=== PATIENT | male | born 1975 | race Caucasian/White ===

== ENCOUNTER 2016-12-23 12:05 | Emergency (ER) | payer BC ==
[2016-12-23 12:21] VITALS: BP 131/86; PULSE 69; O2SAT 98
[2016-12-23] MEDS ORDERED: XYLOCAINE 1% HCL 20 ML MDV IJ ONE (12:23)
[2016-12-23] MEDS ORDERED: Adacel Vial IM ONE ×2 (12:23→12:27)
[2016-12-23] MEDS ORDERED: BACIGUENT PACKET TP ONE (12:23)
[2016-12-23] MEDS ORDERED: BACIGUENT PACKET ONE (12:27)
[2016-12-23] MEDS ORDERED: XYLOCAINE 1% HCL 20 ML MDV ONE (12:27)
--- NOTE | 2016-12-23 12:41 | ERPHSYRPT ---
- History of Present Illness Time Seen by Provider: 12/23/16 12:36 Source: patient Exam Limitations: no limitations Patient Subjective Stated Complaint: pt states he lacerated left lateral thumb with a utility knife, just [employer]. Triage Nursing Assessment: pt pink, warm, dry. 1.5cm laceration to left lateral thumb. no bleeding. radial pulse strong. Physician History: 41 y/o male comes to the ER after using a utility knife and accidently cut the side of his left thumb. Pt arrives with a 1.5 cm laceration with bleeding controlled. Pt admits to mild pain. Pt is not up to date with his immunizations. Timing/Duration: today Quality: painful Severity: mild Location: extremities Allergies/Adverse Reactions: No Known Drug Allergies Allergy (Unverified 12/23/16 12:21) Home Medications: Albuterol Sulfate [Ventolin Hfa] 18 gm IH BIDPRN PRN 12/23/16 [History] Cabergoline 0.25 mg PO UD 12/23/16 [History] Hx Tetanus, Diphtheria Vaccination/Date Given: Yes (unknown) Hx Influenza Vaccination/Date Given: Yes Hx Pneumococcal Vaccination/Date Given: No Immunizations Up to Date: Yes - Review of Systems Constitutional: No Fever, No Chills Eyes: No Symptoms Ears, Nose, & Throat: No Symptoms Respiratory: No Cough, No Dyspnea Cardiac: No Chest Pain, No Edema, No Syncope Abdominal/Gastrointestinal: No Abdominal Pain, No Nausea, No Vomiting, No Diarrhea Genitourinary Symptoms: No Dysuria Musculoskeletal: No Back Pain, No Neck Pain Skin: Other (thumb laceration), No Rash Neurological: No Dizziness, No Focal Weakness, No Sensory Changes Psychological: No Symptoms Endocrine: No Symptoms All Other Systems: Reviewed and Negative - Past Medical History Pertinent Past Medical History: Yes Respiratory History: Asthma Other Medical History: pituitary glan tumor - Past Surgical History Past Surgical History: Yes Gastrointestinal: Hernia Repair Other Surgical History: masectomy - Social History Smoking Status: Never smoker Exposure to second hand smoke: No Drug Use: none Patient Lives Alone: No - Nursing Vital Signs Nursing Vital Signs: Initial Vital Signs Temperature 98.5 F 12/23/16 12:16 Pulse Rate 69 12/23/16 12:16 Respiratory Rate 18 12/23/16 12:16 Blood Pressure 131/86 12/23/16 12:16 O2 Sat by Pulse Oximetry 98 12/23/16 12:16 Pain Scale Pain Intensity 0 - Physical Exam General Appearance: no apparent distress, alert Eye Exam: PERRL/EOMI, eyes nml inspection Ears, Nose, Throat Exam: normal ENT inspection, pharynx normal, moist mucous membranes Neck Exam: normal inspection, non-tender, supple, full range of motion Respiratory Exam: normal breath sounds, lungs clear, No respiratory distress Cardiovascular Exam: regular rate/rhythm, normal heart sounds Gastrointestinal/Abdomen Exam: soft, mass, No tenderness Back Exam: normal inspection, normal range of motion, No CVA tenderness, No vertebral tenderness Extremity Exam: normal inspection, normal range of motion Neurologic Exam: alert, oriented x 3, cooperative, normal mood/affect, sensation nml, No motor deficits Skin Exam: normal color, warm, dry, laceration SpO2: 98 Oxygen Delivery: Room Air Procedures - Laceration/Wound Repair Left Upper Anterior Lateral Proximal Volar Hand Wound Location: Left, hand Wound Length (cm): 1.5 Wound's Depth, Shape: superficial Wound Explored: clean Irrigated: No Hibiclens Prep: Yes Anesthesia: local, 1% Lidocaine Volume Anesthetic (ccs): 3 Wound Debrided: minimal Wound Repaired With: sutures Suture Size/Type: 5-0, ethilon Number of Sutures: 5 Layer Closure?: Yes Sterile Dressing Applied?: Yes - Course Nursing assessment & vital signs reviewed: Yes Ordered Tests: Active Orders 24 hr Category Date Time Status Prepare for Sutures STAT Care 12/23/16 12:23 Active Sutures STAT Care 12/23/16 12:23 Active Wound Care STAT Care 12/23/16 12:23 Active Medication Summary Discontinued Medications Generic Name Dose Route Start Last Admin Trade Name Lyndonq PRN Reason Stop Dose Admin Bacitracin 0.9 gm 12/23/16 12:23 12/23/16 12:29 Baciguent Packet TP 12/23/16 12:24 0.9 gm STAT ONE Administration Bacitracin Confirm 12/23/16 12:27 Baciguent Packet Administered 12/23/16 12:28 Dose 1 gm .ROUTE .STK-MED ONE Diphtheria/Tetanus/Acell Pertussis 0.5 ml 12/23/16 12:23 12/23/16 12:29 Adacel Vial IM 12/23/16 12:24 0.5 ml .ONCE ONE Administration Diphtheria/Tetanus/Acell Pertussis Confirm 12/23/16 12:27 Adacel Vial Administered 12/23/16 12:28 Dose 0.5 ml IM .STK-MED ONE Lidocaine HCl 5 ml 12/23/16 12:23 12/23/16 12:30 Xylocaine 1% Hcl 20 Ml Mdv IJ 12/23/16 12:24 5 ml STAT ONE Administration Lidocaine HCl Confirm 12/23/16 12:27 Xylocaine 1% Hcl 20 Ml Mdv Administered 12/23/16 12:28 Dose 1 ml .ROUTE .STK-MED ONE - Progress Progress: improved Progress Note: 12/23/16 12:39 See Procedure Note. Pt will have stitches taken out in 7 days. - Departure Time of Disposition: 12:40 Departure Disposition: Home Clinical Impression: Thumb laceration Qualifiers: Encounter type: initial encounter Damage to nail status: without damage Foreign body presence: without foreign body Laterality: left Qualified Code(s): S61.012A - Laceration without foreign body of left thumb without damage to nail , initial encounter Condition: Stable Critical Care Time: No Referrals: SOMMER PAVON [Primary Care Provider] - Instructions: Care for a Laceration After Repair, Laceration Repair -- Finger Additional Instructions: You will need to have the stitches removed in 7 days by your PCP or urgent care.
== END 2016-12-23 13:03 | disposition home or self-care (01) ==
LOC: ED 12:05
PROC: 0HQGXZZ Repair Left Hand Skin, External Approach (ICD-10-PCS; principal; 2016-12-23)
DX: S61.012A Laceration without foreign body of left thumb without damage to nail, initial encounter (principal); W26.0XXA Contact with knife, initial encounter
CPT/HCPCS: 12001; 90471; 90715; 99284; A9270-GY

== ENCOUNTER 2017-08-01 16:58 | Emergency (ER) | payer BC ==
[2017-08-01 17:06] VITALS: BP 127/73; PULSE 82; O2SAT 96
--- NOTE | 2017-08-01 17:38 | ERPHSYRPT ---
- History of Present Illness Time Seen by Provider: 08/01/17 17:28 Source: patient, family Exam Limitations: no limitations Patient Subjective Stated Complaint: CRP level of 76, states was seen by PCP yesterday for weakness and SOB. Symptoms improved at this time. Triage Nursing Assessment: Pt presents to the ED with complaints of abnormal labs, states he was sent to ED by PCP for evaluation due to elevated CRP. Pt states all symptoms have improved, denies pain or complaints. No distress noted , skin PWD. Physician History: The patient is a 41-year-old male with his coming in after being told by his primary care doctor, Dr. Juarez, to be seen in the [place] ER because his CRP that was taken yesterday was elevated. Yesterday the patient had mild shortness of breath and lightheadedness with exertion. The patient also had achy joints in his fingers. The patient feels better today. He denies any chest pain today. He denies nausea, vomiting, or diarrhea. The patient's wants him to be evaluated for any cardiac problems. He has not had any cardiac issues in the past. She is worried about him because her dad of a massive heart attack on this day one year ago. Yesterday Dr. Juarez restarted his medicines for diabetes and depression. His family history is significant for an uncle who had a heart attack at age 60. Past medical history is significant for depression and diabetes. Timing/Duration: yesterday Severity: moderate Modifying Factors: Improves With: nothing Associated Symptoms: shortness of breath Allergies/Adverse Reactions: No Known Drug Allergies Allergy (Unverified 12/23/16 12:21) Home Medications: Betamethasone/Propylene Glyc [Betamethasone Dp Aug 0.05% Oin] 1 ea TOP DAILY [History] Bupropion HCl [Bupropion HCl Sr] 100 mg PO DAILY 08/01/17 [History] Metformin HCl 500 mg [Glucophage 500 MG] 500 mg PO DAILY 08/01/17 [History ] Ropinirole HCl 1 mg PO DAILY 08/01/17 [History] Hx Tetanus, Diphtheria Vaccination/Date Given: Yes Hx Influenza Vaccination/Date Given: Yes Hx Pneumococcal Vaccination/Date Given: No Immunizations Up to Date: Yes - Review of Systems Constitutional: No Fever, No Chills Eyes: No Symptoms Ears, Nose, & Throat: No Symptoms Respiratory: Dyspnea on Exertion (CASTA[place]EDA) Cardiac: No Chest Pain Abdominal/Gastrointestinal: No Abdominal Pain, No Nausea, No Vomiting, No Diarrhea Genitourinary Symptoms: No Dysuria Musculoskeletal: Arthralgias Skin: No Rash Neurological: Headache Psychological: No Symptoms Endocrine: No Symptoms Hematologic/Lymphatic: No Symptoms Immunological/Allergic: No Symptoms All Other Systems: Reviewed and Negative - Past Medical History Pertinent Past Medical History: Yes Respiratory History: Asthma Other Medical History: pituitary glan tumor - Past Surgical History Past Surgical History: Yes Gastrointestinal: Hernia Repair Other Surgical History: masectomy - Social History Smoking Status: Never smoker Exposure to second hand smoke: No Drug Use: none Patient Lives Alone: No - Nursing Vital Signs Nursing Vital Signs: Initial Vital Signs Temperature 98.7 F 08/01/17 17:04 Pulse Rate 82 08/01/17 17:04 Respiratory Rate 16 08/01/17 17:04 Blood Pressure 127/73 08/01/17 17:04 O2 Sat by Pulse Oximetry 96 08/01/17 17:04 Pain Scale Pain Intensity 0 - Physical Exam General Appearance: no apparent distress Eye Exam: PERRL/EOMI, eyes nml inspection Ears, Nose, Throat Exam: normal ENT inspection, TMs normal, pharynx normal, moist mucous membranes Neck Exam: normal inspection, non-tender, supple, full range of motion Respiratory Exam: normal breath sounds, lungs clear, No respiratory distress Cardiovascular Exam: regular rate/rhythm, normal heart sounds, normal peripheral pulses Gastrointestinal/Abdomen Exam: soft, normal bowel sounds, No tenderness, No mass Rectal Exam: not done Back Exam: normal inspection, normal range of motion, No CVA tenderness, No vertebral tenderness Extremity Exam: normal inspection, normal range of motion, pelvis stable Neurologic Exam: alert, oriented x 3, cooperative, normal mood/affect, nml cerebellar function, nml station & gait, sensation nml, No motor deficits Skin Exam: normal color, warm, dry, No rash Lymphatic Exam: No adenopathy SpO2 Interpretation: normal SpO2: 96 Oxygen Delivery: Room Air - Course EKG Interpreted by Me: RATE, NORMAL AXIS, NORMAL INTERVALS, NORMAL QRS, NORMAL ST-T - Radiology Exams Chest X-ray Interpretation: Interpreted by me, Negative Ordered Tests: Active Orders 24 hr Category Date Time Status EKG-ER Only STAT Care 08/01/17 17:42 Active CHEST 2 VIEWS (PA AND LAT) Stat Exams 08/01/17 17:43 Taken CBC W DIFF Stat Lab 08/01/17 18:16 Completed CMP Stat Lab 08/01/17 18:16 Completed Lactic Acid Stat Lab 08/01/17 18:25 Completed TROPONIN Stat Lab 08/01/17 18:16 Completed Lab/Rad Data: Laboratory Result Diagrams 08/01/17 18:16 08/01/17 18:16 Laboratory Results 08/01/17 08/01/17 08/01/17 Range/Units 18:25 18:16 18:16 WBC (4.0-10.5) K/mm3 RBC (4.1-5.6) M/mm3 Hgb (12.5-18.0) gm/dl Hct (42-50) % MCV (78-100) fl MCH (26-32) pg MCHC (32-36) g/dl RDW (11.5-14.0) % Plt Count (150-450) K/mm3 MPV (6-9.5) fl Gran % (36.0-66.0) % Eos # (Auto) (0-0.5) Absolute Lymphs (auto) (1.0-4.6) Absolute Monos (auto) (0.0-1.3) Lymphocytes % (24.0-44.0) % Monocytes % (0.0-12.0) % Eosinophils % (0.00-5.0) % Basophils % (0.0-0.4) % Absolute Granulocytes (1.4-6.9) Basophils # (0-0.4) Sodium 140 (137-145) mmol/L Potassium 4.4 (3.5-5.1) mmol/L Chloride 102 (98-107) mmol/L Carbon Dioxide 28 (22-30) mmol/L Anion Gap 15.0 (5-15) MEQ/L BUN 18 (9-20) mg/dL Creatinine 0.92 (0.66-1.25) mg/dL Estimated GFR > 60.0 ML/MIN Glucose 108 H (74-106) mg/dL Lactic Acid 1.0 (0.4-2.0) Calcium 9.8 (8.4-10.2) mg/dL Total Bilirubin 0.40 (0.2-1.3) mg/dL AST 27 (17-59) U/L ALT 47 (0-50) U/L Alkaline Phosphatase 73 (38-126) U/L Troponin I < 0.012 (0.000-0.034) ng/mL Serum Total Protein 7.5 (6.3-8.2) g/dL Albumin 4.3 (3.5-5.0) g/dL 08/01/17 Range/Units 18:16 WBC 4.1 (4.0-10.5) K/mm3 RBC 5.59 (4.1-5.6) M/mm3 Hgb 16.5 (12.5-18.0) gm/dl Hct 46.9 (42-50) % MCV 83.9 (78-100) fl MCH 29.5 (26-32) pg MCHC 35.2 (32-36) g/dl RDW 13.0 (11.5-14.0) % Plt Count 191 (150-450) K/mm3 MPV 10.2 H (6-9.5) fl Gran % 51.8 (36.0-66.0) % Eos # (Auto) 0.18 (0-0.5) Absolute Lymphs (auto) 1.29 (1.0-4.6) Absolute Monos (auto) 0.49 (0.0-1.3) Lymphocytes % 31.4 (24.0-44.0) % Monocytes % 11.9 (0.0-12.0) % Eosinophils % 4.4 (0.00-5.0) % Basophils % 0.5 (0.0-0.4) % Absolute Granulocytes 2.13 (1.4-6.9) Basophils # 0.02 (0-0.4) Sodium (137-145) mmol/L Potassium (3.5-5.1) mmol/L Chloride (98-107) mmol/L Carbon Dioxide (22-30) mmol/L Anion Gap (5-15) MEQ/L BUN (9-20) mg/dL Creatinine (0.66-1.25) mg/dL Estimated GFR ML/MIN Glucose (74-106) mg/dL Lactic Acid (0.4-2.0) Calcium (8.4-10.2) mg/dL Total Bilirubin (0.2-1.3) mg/dL AST (17-59) U/L ALT (0-50) U/L Alkaline Phosphatase (38-126) U/L Troponin I (0.000-0.034) ng/mL Serum Total Protein (6.3-8.2) g/dL Albumin (3.5-5.0) g/dL - Departure Time of Disposition: 19:10 Departure Disposition: Home Clinical Impression: Normal exam Condition: Stable Critical Care Time: No Referrals: SOMMER JUAREZ [Primary Care Provider] - Additional Instructions: The testing that we have done today including CBC, complete chemistry, troponin , EKG, and chest x-ray are all within normal range. Please call Dr. Juarez tomorrow for possible further evaluation.
[2017-08-01 18:20] LABS: BASOPHIL % 0.5 % (0.0-0.4); Basophil (Absolute #) 0.02 (0-0.4); Eosinophil % 4.4 % (0.00-5.0); Eosinophil (Absolute #) 0.18 (0-0.5); Granulocyte Absolute (ANC) 2.13 (1.4-6.9); Granulocytes % 51.8 % (36.0-66.0); Hematocrit 46.9 % (42-50); Hemoglobin 16.5 gm/dl (12.5-18.0); Lymphocyte (Absolute #) 1.29 (1.0-4.6); Lymphocytes % 31.4 % (24.0-44.0); Mean Cell Volume 83.9 fl (78-100); Mean Corpuscular Hemoglobin 29.5 pg (26-32); Mean Corpuscular Hgb Concent. 35.2 g/dl (32-36); Mean Platelet Volume 10.2 fl (6-9.5); Monocyte (Absolute #) 0.49 (0.0-1.3); Monocytes % 11.9 % (0.0-12.0); Platelet Count 191 K/mm3 (150-450); Red Blood Count 5.59 M/mm3 (4.1-5.6); White Blood Count 4.1 K/mm3 (4.0-10.5)
[2017-08-01 18:45] LABS: ALBUMIN 4.3 g/dL (3.5-5.0); ALKALINE PHOSPHATASE 73 U/L (38-126); BLOOD UREA NITROGEN 18 mg/dL (9-20); CHLORIDE 102 mmol/L (98-107); Calcium 9.8 mg/dL (8.4-10.2); Carbon Dioxide 28 mmol/L (22-30); Creatinine 1 0.92 mg/dL (0.66-1.25); Glucose 108 mg/dL (74-106); Potassium 4.4 mmol/L (3.5-5.1); SGOT/AST 27 U/L (17-59); SGPT/ALT 47 U/L (0-50); SODIUM 140 mmol/L (137-145); Total Protein 7.5 g/dL (6.3-8.2)
--- NOTE | 2017-08-02 08:32 | XRAY ---
Indication: Short of breath. Comparison: April 10, 2008. PA/lateral chest again demonstrates normal heart and lungs. Bony thorax intact. No new/acute findings.
== END 2017-08-01 19:22 | disposition home or self-care (01) ==
LOC: ED 16:58
DX: Z04.8 Encounter for examination and observation for other specified reasons (principal); E11.9 Type 2 diabetes mellitus without complications; Z79.84 Long term (current) use of oral hypoglycemic drugs; Z79.899 Other long term (current) drug therapy
CPT/HCPCS: 36415; 71046; 80053; 83605; 84484; 85025; 93005; 99283; 99284